=== PATIENT | female | born 1995 | race Two or more races ===

== ENCOUNTER 2020-09-13 06:59 | Emergency (ER) | payer MEDICAID ==
[~2020-09-13] VITALS: Ht 160 cm; Wt 51.0 kg
[2020-09-13 07:03] VITALS: BP 134/95
[2020-09-13] MEDS ORDERED: AZITHROMYCIN 500 MG TABLET PO ONE (08:30)
[2020-09-13] MEDS ORDERED: CEFTRIAXONE SODIUM 250 MG/VIAL IM ONE (08:30)
[2020-09-13] MEDS ORDERED: LIDOCAINE HCL 1% 20ML VIAL (Pyxis) INJ INFIL ONE (08:30)
[2020-09-13 09:07] LABS: CLARITY URINE CLOUDY (CLEAR); COLOR URINE YELLOW (YELLOW); KETONES URINE NEGATIVE (NEGATIVE); LEUKOCYTE ESTERASE URINE 2+ (NEGATIVE); NITRITE URINE NEGATIVE (NEGATIVE); OCCULT BLOOD URINE NEGATIVE (NEGATIVE); PROTEIN URINE NEGATIVE (NEGATIVE); SPECIFIC GRAVITY URINE 1.021 (1.005-1.030)
[2020-09-13] MEDS ORDERED: METRONIDAZOLE 500MG TABLET PO ONE (09:30)
[2020-09-15 04:07] LABS: NEISSERIA GONORRHOEAE NAA Positive (Negative)
== END 2020-09-13 09:37 | disposition home or self-care (01) ==
LOC: ER 06:59
DX: N39.0 Urinary tract infection, site not specified (principal); A59.9 Trichomoniasis, unspecified; F15.10 Other stimulant abuse, uncomplicated
CPT/HCPCS: 81003; 81025; 87491; 87591; 96372; 99283; J0696; J3490

== ENCOUNTER 2020-09-24 00:16 | Emergency (ER) | payer MEDICAID ==
[~2020-09-24] VITALS: Ht 162.6 cm; Wt 56.0 kg
[2020-09-24 00:59] VITALS: BP 115/73
== END 2020-09-24 01:13 | disposition home or self-care (01) ==
LOC: ER 00:16
DX: N39.0 Urinary tract infection, site not specified (principal); F15.10 Other stimulant abuse, uncomplicated; Z76.0 Encounter for issue of repeat prescription
CPT/HCPCS: 99283

== ENCOUNTER 2020-10-02 06:26 | Emergency (ER) | payer MEDICAID ==
[~2020-10-02] VITALS: Ht 162.6 cm; Wt 54.5 kg
[2020-10-02 06:35] VITALS: BP 123/61
[2020-10-02] MEDS ORDERED: CEFTRIAXONE SODIUM 500 MG/VIAL IM ONE (07:00)
[2020-10-02] MEDS ORDERED: DOXYCYCLINE HYCLATE 100MG CAPSULE PO ONE (07:00)
== END 2020-10-02 07:19 | disposition home or self-care (01) ==
LOC: ER 06:26
DX: Z20.2 Contact with and (suspected) exposure to infections with a predominantly sexual mode of transmission (principal); F15.10 Other stimulant abuse, uncomplicated
CPT/HCPCS: 96372; 99283; J0696